=== PATIENT | male | born 1955 | race Caucasian/White ===

== ENCOUNTER 2016-03-06 17:00 | Emergency (ER) | payer BC, OTHER ==
[2016-03-06] MEDS ORDERED: ONDANSETRON 4 MG/2 ML VIAL IVP ONE (17:18)
[2016-03-06] MEDS ORDERED: Sodium Chloride 0.9% 1,000 ML PRIMARY IV ONE (17:18)
--- NOTE | 2016-03-06 17:24 | PDOC ---
Neuro Symptoms / Deficit HPI - General Chief Complaint: Neurological Complaints Stated Complaint: DISORIENTED, CONFUSED, SLURRED SPEECH SINCE 1600 Date Seen by Provider: 03/06/16 Time Seen by Provider: 17:19 Source: POSITIVE: Spouse Exam Limitations: POSITIVE: Clinical condition, Intoxication Nurse's Notes Reviewed & Considered: Yes - History of Present Illness Initial Comments: Patient was brought in by his with altered mental status. Patient was normal earlier today driven home from [place], his left him at home, on a short errand. Upon return home she found him to have altered mental status, slurring of his speech, confusion, disoriented, and flat affect. reports that 2 weeks ago while on a cruise to [facility] he underwent a grand mal seizure and was seen on the [facility]. He is unable to tell me when he had his last drink alcohol, he is a known alcoholic. He smells of alcohol. Timing: REPORTS: Abrupt Duration: 1 hour Severity: Severe Character of Deficit(s): REPORTS: General(diffuse), Impaired Speech, Weak, Cannot Walk, Cannot Stand Associated Symptoms: REPORTS: Altered Mental Status, Disoriented, Confused, Decreased Responsiveness Usual Ability to Walk/Stand: REPORTS: Walks w/o Assistance Usual Cognition: REPORTS: Alert & Oriented x3 Similar Symptoms Previously: No Recently seen/treated/hospitalized: No Any Prior Injuries Related to Current Complaint?: No - Patient Home Medications Home Medications: Home Medications Amlodipine Besylate 1 tab PO QD #90 tab 10/14/15 Lisinopril 1 tab PO QD #90 tab 11/09/15 Triamterene/Hydrochlorothiazid [Triamterene-Hctz 37.5-25 Mg Cp] 1 cap PO QD #90 cap 11/16/15 - Patient Allergies Allergies/Adverse Reactions: Allergies Allergy/AdvReac Type Severity Reaction Status Date / Time No Known Drug Allergies Allergy NOT Verified 03/06/16 17:25 APPLICABLE Past Medical History - heen HEENT History: Denies History Cardiovascular History: Hypertension Respiratory History: Denies History Gastrointestinal History: Denies History Genitourinary History: Denies History Endocrine History: Denies History Musculoskeletal History: Joint Pain Prosthesis or Implant: No Additional Musculoskeletal History: complaints of bilateral kneee pain Neurological History: Denies History Blood Disorders: Denies History Psychiatric History: Substance Abuse, Other (please comment) Additional Psychiatric History: SLEEP TALKING History of Sexually Transmitted Diseases: No Cancer History: Skin History of MDRO: Unknown History of Other Communicable Diseases: No Alcohol Use: Sober Substance Use Type: None Type / Date of Surgery: RIGHT BICEPS RECONSTRUCTION/RIGHT MENISCUS REPAIR Significant Family History: Cancer, Diabetes, Vascular disease, Other (please comment) ROS - Limitations ROS Limitations: Clinical Condition (Patient with altered mental status, further review of systems is unavailable.) Neuro Symptoms / Deficit Exam - General Appearance General Appearance: POSITIVE: No Acute Distress - HEENT HEENT: POSITIVE: Head Inspection Nml, Eyes Inspection Nml, Ears Inspection Nml, Nose Inspection Nml, Oral/Dental Inspect. Nml, Pharynx Inspect. Nml, PERRL, EOMI - Pupil Size Pupil Size: 4 mm: Bilateral - Neuro / Psych Higher Functions: POSITIVE: Disoriented to Place, Disoriented to Time, Speech Abnormalities, Slow Response to Command, Dysarthria Cranial Nerves: POSITIVE: Dysarthria, Other (No facial asymmetry is appreciated. He has difficulty tracking.) Cerebellar: POSITIVE: Abnormal Gait, Abnormal Finger To Nose Peripheral Exam: POSITIVE: Sensation Normal, Motor Normal, Reflexes Normal Reflexes: Patellar (R): 2+, Patellar (L): 2+, Radial (R): 2+, Radial (L): 2+ - Neck Neck: POSITIVE: Supple, Non-Tender - Respiratory Respiratory: POSITIVE: No Respiratory Distress, Breath Sounds Normal - Cardiovascular Cardiovascular: POSITIVE: Regular Rate & Rhythm, Heart Sounds Normal Peripheral Pulses: Radial (R): 2+, Radial (L): 2+ - Abdomen Abdomen: Soft: (All Quadrants), Normal Bowel Sounds: (All Quadrants), Denies Tenderness: (All Quadrants) - Skin Skin: POSITIVE: Intact, Normal For Race, Warm, Dry, No Rash - Extremities Extremity: Non-Tender: (All Extremities), Normal ROM: (All Extremities), Normal Inspection: (All Extremities) Neuro Symptom/Deficit Progress - Results Reviewed by me Xrays/CTs/US Reviewed by me: Yes Discussed with Radiologist: Yes Lab Results Reviewed: Yes Lab Results:: Laboratory Results 03/06/16 03/06/16 Range/Units 17:20 17:28 WBC 10.30 (4.8-10.8) 10^3/uL RBC 3.99 L (4.70-6.10) 10^6/uL Hgb 13.8 L (14.0-18.0) g/dL Hct 39.5 L (42.0-52.0) % MCV 99.0 H (80-90) FL MCH 34.6 H (27-31) PG MCHC 34.9 (33-37) g/dL RDW Std Deviation 44.1 (39-50) fL RDW Coeff of Whitney 12.4 (11.5-14.5) % Plt Count 128 L (140-350) 10*3/uL MPV 9.6 (7.4-12.2) FL Immature Gran % (Auto) 0.4 (0-5) % Neut % (Auto) 72.3 (50-80) % Lymph % (Auto) 18.5 (10-50) % [place] % (Auto) 6.9 (5-15) % Eos % (Auto) 1.3 (0-8) % Baso % (Auto) 0.6 (0-1) % Immature Gran # (Auto) 0.04 10*3/UL Neut # (Auto) 7.45 10*3/UL Lymph # (Auto) 1.91 10*3/uL [place] # (Auto) 0.71 (0.3-0.8) 10*3/UL Eos # (Auto) 0.13 10*3/UL Baso # (Auto) 0.06 10*3/UL WBC Morphology Comment Normal morphology (NORM) Plt Morphology Comment Normal morphology (NORM) RBC Morph Comment Normal morphology (NORM) VBG pH 7.38 (7.32-7.42) VBG pCO2 37 L (45-55) mmHg VBG HCO3 22 (22-26) mmol/L VBG Base Excess -3 L (-2-2) MMOL/L Sodium 142 (135-145) meq/L Potassium 4.1 (3.8-5.2) meq/L Chloride 101 (98-112) meq/L Carbon Dioxide 23 (23-33) meq/L Anion Gap 18 (5-20) BUN 15 (7-22) mg/dL Creatinine 0.9 (0.70-1.50) mg/dL Estimated GFR > 60 (>60 ml/min/1.73m(2)) BUN/Creatinine Ratio 16.66 (6-20) Glucose 93 (78-110) mg/dL Calculated Osmolality 294.0 H (267-292) mOsm/kg Lactic Acid 2.9 H (0.70-2.10) MMOL/L Calcium 9.3 (8.7-10.7) mg/dL Magnesium 1.5 L (1.6-2.4) mg/dL Total Bilirubin 0.6 (0.3-1.2) mg/dL AST 41 (21-57) IU/L ALT 37 (21-72) IU/L Alkaline Phosphatase 85 (38-126) IU/L Total Protein 7.4 (6.1-8.0) g/dL Albumin 4.7 (3.5-4.8) g/dL Globulin 2.7 (2.50-4.10) g/dL Albumin/Globulin Ratio 1.70 (1.3-2.0) mg/g TSH 3.16 (0.2700-4.2000) uIU/mL Free T4 1.07 (0.93-1.71) ng/dL Ur Collection Type Clean catch urine U Specif Grav (Refrac) 1.006 Urine Opiates Screen Negative (NEG) Ur Buprenorphine Negative (NEG) Ur Oxycodone Screen Negative (NEG) Urine Methadone Screen Negative (NEG) Ur Propoxyphene Screen Negative (NEG) Barbiturate Screen Negative (NEG) U Tricyclic Antidepress Negative (NEG) Phencyclidine Screen Negative (NEG) Amphetamines Screen Negative (NEG) U Methamphetamines Scrn Negative (NEG) Benzodiazepines Screen Positive H (NEG) Cocaine Screen Negative (NEG) U Marijuana (THC) Screen Negative (NEG) Serum Alcohol 403 H (0-10) mg/dL - Patient's Progress Pain Medication Addressed: POSITIVE: Not Applicable Re-Examine Time:: 20:45 (Pt is ambulatory with assistence) Status: POSITIVE: Improved MDM / ED Course: Patient comes in today with altered mental status, he was examined, IV was established, blood drawn and sent to lab for studies, and radiographic examinations obtained. Laboratory findings: Blood alcohol greater than 400 CT findings: No acute intracranial abnormalities. Assessment: Acute alcohol intoxication. Plan: Patient wishes to be discharged home. He is being discharged home his states she will be there with him his instructions to follow up with his primary care physician tomorrow. Antibiotics Given: No - Consult Counseled: POSITIVE: Patient, Family, RE: Lab Results, RE: Radiology Results, RE : DX, RE: Need for F/U Patient Care Time - Estimated PCT Patient Care Time (In Minutes): 60 Vital Signs - Recent Vital Signs Vital Signs: Vital Signs (Last 8 hours) Temp Pulse Resp BP Pulse Ox 03/06/16 17:15 17 94 03/06/16 17:00 97.2 F 87 19 104/67 89 - VS Reviewed Vital Signs Reviewed: Yes Discharge Clinical Impression: Alcoholic intoxication Discharge Disposition: Discharged to Home Condition: Fair Patient Instructions Given at Discharge: Alcohol Intoxication (ED), Alcohol Use Disorder (ED)
[2016-03-06 17:31] LABS: BASOPHILS # (AUTO) 0.06 10*3/UL; BASOPHILS % (AUTO) 0.6 % (0-1); EOSINOPHILS % (AUTO) 1.3 % (0-8); HEMATOCRIT 39.5 % (42.0-52.0); HEMOGLOBIN 13.8 g/dL (14.0-18.0); IMM GRAN % (AUTO) 0.4 % (0-5); IMM GRAN# (AUTO) 0.04 10*3/UL; LYMPHOCYTES # (AUTO) 1.91 10*3/uL; LYMPHOCYTES % (AUTO) 18.5 % (10-50); MEAN CORPUSCULAR HEMOGLOBIN 34.6 PG (27-31); MEAN CORPUSCULAR HGB CONC 34.9 g/dL (33-37); MEAN PLATELET VOLUME 9.6 FL (7.4-12.2); MONOCYTES # (AUTO) 0.71 10*3/UL (0.3-0.8); MONOCYTES % (AUTO) 6.9 % (5-15); NEUTROPHILS # (AUTO) 7.45 10*3/UL; NEUTROPHILS % (AUTO) 72.3 % (50-80); RDW COEFFICIENT OF VARIATION 12.4 % (11.5-14.5); RED BLOOD COUNT 3.99 10^6/uL (4.70-6.10)
[2016-03-06 17:33] LABS: PLATELET MORPHOLOGY COMMENT NORMAL MORPHOLOGY (NORM)
[2016-03-06 17:43] LABS: ASPARTATE AMINO TRANSFERASE 41 IU/L (21-57); BILIRUBIN,TOTAL 0.6 mg/dL (0.3-1.2); BLOOD UREA NITROGEN 15 mg/dL (7-22); BUN/CREATININE RATIO 16.66 (6-20); CALCIUM 9.3 mg/dL (8.7-10.7); CHLORIDE 101 meq/L (98-112); CREATININE 0.9 mg/dL (0.70-1.50); EST GLOMERULAR FILTRATION > 60 (>60 ml/min/1.73m(2)); GLUCOSE 93 mg/dL (78-110); MAGNESIUM 1.5 mg/dL (1.6-2.4); POTASSIUM 4.1 meq/L (3.8-5.2); SODIUM 142 meq/L (135-145); TOTAL PROTEIN 7.4 g/dL (6.1-8.0)
[2016-03-06 18:06] LABS: FREE T4 (FREE THYROXINE) 1.07 ng/dL (0.93-1.71); SERUM ALCOHOL 403 mg/dL (0-10)
[2016-03-06 18:37] VITALS: TEMP 97.2
[2016-03-06 18:39] VITALS: RESP 17
--- NOTE | 2016-03-06 18:51 | DI ---
HISTORY: Altered mental status. COMPARISON: None available. TECHNIQUE: Multiple helically acquired CT images were obtained through the brain without contrast. FINDINGS: Examination demonstrates normal, symmetric ventricles and other CSF containing spaces. There is no evidence of mass lesion, hemorrhage nor midline shift. Surrounding soft tissue and osseous structures are unremarkable. IMPRESSION: 1. Normal CT of the head.
[2016-03-06 18:56] LABS: CANNABINOID SCREEN,URINE NEGATIVE (NEG); COCAINE SCREEN NEGATIVE (NEG); METHAMPHETAMINES SCREEN,URINE NEGATIVE (NEG); URINE SAMPLE TYPE CLEAN CATCH URINE; URINE SPECIFIC GRAVITY - MAN 1.006
== END 2016-03-06 20:55 | disposition home or self-care (01) ==
LOC: ER 17:00
DX: F10.129 Alcohol abuse with intoxication, unspecified (principal); R47.81 Slurred speech; R41.0 Disorientation, unspecified
CPT/HCPCS: 36415; 70450; 80053; 80320; 82803; 83605; 83735; 84439; 84443; 85025; 96361; 96374; 99283 ×2; G0477; J2405; J7030

== ENCOUNTER 2017-09-20 18:08 | Inpatient (IN) ==
[2017-09-20] MEDS ORDERED: LORazepam 1 mg tab (ETOH withdrawal) PO PRN (18:41)
[2017-09-20] MEDS ORDERED: ACETAMINOPHEN 325 MG TABLET PO PRN (18:41)
[2017-09-20] MEDS ORDERED: MAGNESIUM 400 MG/5 ML - 30 ML (MILK OF MAGNESIA) PO PRN (18:41)
[2017-09-20] MEDS ORDERED: Loperamide Tab 2 MG TABLET PO PRN (18:41)
[2017-09-20] MEDS ORDERED: ONDANSETRON 4 MG/2 ML VIAL IV PRN (18:41)
[2017-09-20] MEDS ORDERED: LIDOCAINE W/ SODIUM BICARB 0.5 ML SYR SUBD PRN (18:41)
[2017-09-20] MEDS ORDERED: MAG HYDROX/AL HYDROX/SIMETH 30 ML SUSP PO PRN (18:41)
[2017-09-20] MEDS ORDERED: Sodium Chloride 0.9% 1,000 ML, Magnesium Sulfate 2gm (Premix) 50 ML with Multivitamin I... IV SCH ×5 (19:00)
[2017-09-20] MEDS: LORazepam Inj(ETOH withdrawal) 2 MG/ML VIAL IVP PRN ×2 (19:38→21:19)
[2017-09-20] MEDS: Sodium Chloride 0.9% 1,000 ML with Multivitamin Inj 10 ML, Thiamine Inj 100 MG, Folic A... IV SCH ×5 (19:38)
--- NOTE | 2017-09-20 19:44 | PDOC ---
HPI - History of Present Illness Date of Service: 09/20/17 Time of Service: 19:37 Chief Complaint: I'm in withdrawal History of Present Illness: This very pleasant 61-year-old male with a history of chronic alcoholism with 3 attempts at rehabilitation in about 9 months to 3 years of sobriety since 2004. He comes in accompanied by his , pharmacist here at the hospital, with complaints of being shaky, having abdominal pain, and apparently starting him on some confusion. His reports that the patient can get very confused and not even recognize her at times due to his alcohol consumption. He states that he normally drinks a fifth of vodka daily although his states it could be as much as two per day. The patient states his last drink was Monday. He denies any other drug use. He denies any other medical problems although he did have some high blood pressure in the past but that seemed to go away in his months of sobriety. He stated to me that he doesn't know why he decided to quit on Monday but he said overall that "I'm sick and tired of being sick". The patient has tried Alcoholics Anonymous, [email or web address], and a facility in [place], [place]. According to the patient's , the patient often gets hallucinations , severe tachycardia, he's never been intubated however. He can get hypertensive as well. She described it as a "rodeo". Past Medical History Medical History: 1. Chronic alcoholism Surgical History: 1. Right biceps repair. 2. Knee meniscus surgery. Pertinent Family History: Brother of alcohol related issues. Past Social History: Drinks heavily, , no children, does not smoke or do drugs. Tobacco Use: Never Smoker In the Past 12 Months, Have Used or Abuse Any of the Following Substance: None Alcohol Use: Heavy Medication / Allergies Home Medications: Home Medications 3 Medication Instructions Recorded Confirmed Type NK 09/20/17 09/20/17 History Allergies/Adverse Reactions: Allergies 3 Allergy/AdvReac Type Severity Reaction Status Date / Time No Known Drug Allergies Allergy NOT Verified 09/20/17 18:59 APPLICABLE Review of Systems - Review of Systems All Systems: Reviewed & No Additional Complaints Except as Stated (I did a 12 point review systems and other than that discussed in history present illness the review systems is entirely negative.) Exam - Vitals Vital Signs: Vital Signs Temperature 99.9 F Temperature Source Oral Pulse Rate [Apical] 90 Pulse Rate [Pulse Oximeter] 78 Pulse Rate 90 Respiratory Rate 18 Blood Pressure [Left Arm] 171/104 Blood Pressure 160/101 Pulse Ox 93 Oxygen Delivery Method Room Air Height 6 ft Weight 204 lb 5 oz - General General Appearance: Cooperative, Mild Distress (Agitated, bilateral tremors, cooperative, nontoxic despite low-grade temperature) - Head Head Exam: Normal Inspection, Normocephalic, Atraumatic - Eye Eye Exam: POSITIVE: No Scleral Icterus - ENT ENT Exam: POSITIVE: Mucous Membranes Dry - Neck Neck Exam: Normal Inspection, No Tenderness, No Lymphadenopathy, No Thyromegaly , JVP is not Raised - Respiratory Respiratory Exam: POSITIVE: Clear to Auscultation - Bilaterally, Breathing Non Labored, Normal to Percussion and Palpation - Cardiovascular Cardiovascular Exam: POSITIVE: RRR, No Murmur, No Clicks, No Gallops, No Rubs, No JVD - GI/Abdominal GI/Abdominal Exam: POSITIVE: Normal Bowel Sounds, Non Distended, Soft, Hepatomegaly Additional GI/Abdominal Exam Details: Mildly tender to palpation. - Rectal Rectal Exam: POSITIVE: Deferred - External Exam: POSITIVE: Deferred Exam: POSITIVE: Deferred - Extremities Extremities Exam: POSITIVE: No Clubbing Present, No Edema Present, No Cyanosis Present - Back Back Exam: POSITIVE: Normal Inspection, No CVA Tenderness - Neurological Neurological Exam: POSITIVE: Alert, Oriented x 3, No Facial Droop, Speech Intact / Clear, Moves All Extremities Equally Additional Neurological Exam Details: Bilateral arm tremors and hand tremors. Mild agitation - Psychiatric Psychiatric Exam: POSITIVE: Anxious, Agitated - Integumentary Integumentary Exam: POSITIVE: Normal Color, Warm, Dry, Intact - Central Line Examination Central Line Present on Admission: No Results - Labs Additional Lab Results: I had several tests ordered including a CMP, CBC with differential, PT and INR, gamma GT, and may order more diagnostic testing. Based on these labs. I have also order urinalysis, a urine drug screen, and a serum alcohol level. Assessment and Plan - Patient Problems (1) Alcohol withdrawal delirium Current Visit: Yes Status: Acute Code(s): F10.231 - Alcohol dependence with withdrawal delirium (2) Alcohol abuse Current Visit: Yes Status: Acute Code(s): F10.10 - Alcohol abuse, uncomplicated (3) Hypertension Current Visit: Yes Status: Acute Code(s): I10 - Essential (primary) hypertension Qualifiers: Hypertension type: essential hypertension Qualified Code(s): I10 - Essential (primary) hypertension - Assessment / Plan Additional Assessment/Plan Details: Given the complex nature of this alcoholic withdrawal syndrome, with the start of delirium tremens with hypertension, confusion reported at home, agitation, and tremors, along with abdominal pain and hepatomegaly, in addition to alcohol withdrawal and also worried about potential acute alcoholic hepatitis. The patient will be admitted to the intensive care unit for Precedex drip, CIWA protocol, Librium, vitamin B6, banana bags, electrolyte replacement as necessary , and management of this withdrawal. The patient is trying to formulate a plan for post withdrawal treatment for long -term alcoholic treatment. I did suggest consideration for naltrexone, 50 mg by mouth daily Treat blood pressures when necessary. Labs in a.m. Protonix DVT prophylaxis. Will probably need some sort of abdominal imaging for hepatomegaly. Spoke to the patient and his regarding this plan and they agree. Patient is full code.
[2017-09-20] MEDS ORDERED: PANTOPRAZOLE IV 40 MG VIAL IVP ONE (19:48)
[2017-09-20 20:01] LABS: BLOOD UREA NITROGEN 12 mg/dL (7-22); BUN/CREATININE RATIO 17.14 (6-20); SERUM ALBUMIN 4.5 g/dL (3.5-4.8)
[2017-09-20 20:09] LABS: BASOPHILS # (AUTO) 0.03 10*3/UL; BASOPHILS % (AUTO) 0.7 % (0-1); EOSINOPHILS # (AUTO) 0.01 10*3/UL; EOSINOPHILS % (AUTO) 0.2 % (0-8); Hematocrit [HCT] 42.9 % (42.0-52.0); Hemoglobin [HGB] 15.6 g/dL (14.0-18.0); LYMPHOCYTES # (AUTO) 0.47 10*3/uL; MEAN CORPUSCULAR HEMOGLOBIN 36.4 PG (27-31); MEAN CORPUSCULAR HGB CONC 36.4 g/dL (33-37); MEAN CORPUSCULAR VOLUME 100.2 FL (80-90); MEAN PLATELET VOLUME 9.7 FL (7.4-12.2); MONOCYTES # (AUTO) 0.46 10*3/UL (0.3-0.8); MONOCYTES % (AUTO) 10.8 % (5-15); NEUTROPHILS # (AUTO) 3.27 10*3/UL; NEUTROPHILS % (AUTO) 76.6 % (50-80); RED BLOOD COUNT 4.28 10^6/uL (4.70-6.10)
[2017-09-20] MEDS: PANTOPRAZOLE IV 40 MG VIAL IVP SCH (20:09)
[2017-09-20 20:12] LABS: PLATELET MORPHOLOGY COMMENT SEE COMMENTS (NORM); RBC MORPHOLOGY COMMENT NORMAL MORPHOLOGY (NORM); WBC MORPHOLOGY COMMENT NORMAL MORPHOLOGY (NORM)
[2017-09-20] MEDS: MAGNESIUM OXIDE 400 MG TABLET PO SCH (20:17)
[2017-09-20] MEDS: Sodium Chloride 0.9% 1,000 ML PRIMARY IV SCH (20:21)
[2017-09-20] MEDS ORDERED: ChlordiazePOXIDE 25mg Cap (ETOH withdrawal) PO SCH (21:00)
[2017-09-20] MEDS: NICOTINE 21 MG /DAY PATCH TRANSDERM SCH (22:02)
[2017-09-21 05:21] LABS: BASOPHILS # (AUTO) 0.02 10*3/UL; BASOPHILS % (AUTO) 0.6 % (0-1); EOSINOPHILS # (AUTO) 0.09 10*3/UL; EOSINOPHILS % (AUTO) 2.6 % (0-8); Hemoglobin [HGB] 14.1 g/dL (14.0-18.0); LYMPHOCYTES # (AUTO) 0.63 10*3/uL; MEAN CORPUSCULAR HEMOGLOBIN 34.8 PG (27-31); MEAN CORPUSCULAR HGB CONC 33.6 g/dL (33-37); MEAN CORPUSCULAR VOLUME 103.7 FL (80-90); MEAN PLATELET VOLUME 9.9 FL (7.4-12.2); MONOCYTES # (AUTO) 0.42 10*3/UL (0.3-0.8); MONOCYTES % (AUTO) 12.3 % (5-15); NEUTROPHILS # (AUTO) 2.25 10*3/UL; RED BLOOD COUNT 4.05 10^6/uL (4.70-6.10)
[2017-09-21 05:33] LABS: BILIRUBIN,URINE SMALL (NEG); CLARITY,URINE CLEAR (CLEAR); COLOR,URINE YELLOW (Y); GLUCOSE, URINE (UA) NEGATIVE (NEG); OCCULT BLOOD,URINE NEGATIVE (NEG); PH,URINE 7.5 (5.0-8.5); PROTEIN,URINE >300 mg/dl (NEG)
[2017-09-21 05:40] LABS: URINE SAMPLE TYPE CLEAN CATCH URINE
[2017-09-21 05:45] LABS: AMPHETAMINE SCREEN NEGATIVE (NEG); BACTERIA,URINE FEW; CANNABINOID SCREEN,URINE NEGATIVE (NEG); COCAINE SCREEN NEGATIVE (NEG); METHADONE URINE SCREEN NEGATIVE (NEG); METHAMPHETAMINES SCREEN,URINE NEGATIVE (NEG); OPIATE SCREEN,URINE NEGATIVE (NEG); RBC,URINE 0-1 /hpf; URINE SAMPLE TYPE CLEAN CATCH URINE; WBC,URINE 0-1
[2017-09-21 06:10] LABS: PLATELET MORPHOLOGY COMMENT NORMAL MORPHOLOGY (NORM); RBC MORPHOLOGY COMMENT NORMAL MORPHOLOGY (NORM); WBC MORPHOLOGY COMMENT NORMAL MORPHOLOGY (NORM)
[2017-09-21] MEDS ORDERED: PANTOPRAZOLE 40 MG TABLET PO SCH (07:00)
[2017-09-21] MEDS: PANTOPRAZOLE IV 40 MG VIAL IVP SCH ×2 (08:41→19:26)
[2017-09-21] MEDS: Multivitamin Tab 1 TAB PO SCH (08:41)
[2017-09-21] MEDS: Thiamine Tab 100 MG TAB PO SCH (08:41)
[2017-09-21] MEDS: ChlordiazePOXIDE Cap 25 MG CAPSULE PO SCH ×3 (08:41→20:47)
[2017-09-21] MEDS: MAGNESIUM OXIDE 400 MG TABLET PO SCH ×2 (08:42→20:47)
[2017-09-21] MEDS: NICOTINE 21 MG /DAY PATCH TRANSDERM SCH (08:42)
[2017-09-21] MEDS: Patch Removal NICOTINE PATCH TRANSDERM SCH (08:42)
--- NOTE | 2017-09-21 13:42 | DI ---
ABDOMINAL ULTRASOUND, 09/21/2017 10:54 AM: Clinical History: Elevated LFTs. Previous Exam: None at this facility. Scans are performed through the right and left upper quadrants in multiple projections. The gallbladder is well distended and has a normal wall thickness. There are no gall stones. Common b ile duct measures 4 mm. There is hepatomegaly with increased echogenicity and decreased through trans mission most consistent with fatty infiltration. No nodularity of the liver capsule is identified and there is no distortion of the vascular pattern of the liver to definitely indicate cirrhosis. Color Doppler ultrasound of the portal vein shows centripetal flow. The head and neck of the pancreas are v isualized and those portions are normal. Both kidneys and the spleen are normal. The IVC and aorta ar e also normal. READIN. Hepatomegaly with increased echogenicity without nodularity of the liver capsule or distortion of the vascular structures of the liver. This finding is most consistent with diffuse fatty infiltratio n. Cirrhosis cannot entirely be excluded. There is normal centripetal flow in the portal veins. 2. Both kidneys, the spleen, aorta, IVC, and the limited views of the pancreas are normal.
[2017-09-21] MEDS ORDERED: Dexmedetomidine/NS 400 MCG/100 ML INFUS..BTL IV SCH (15:15)
--- NOTE | 2017-09-21 16:27 | PDOC(PROG) ---
Date and Time of Service: 09/21/2017, 1624 Interval History: He denies chest pain, shortness breath, nausea or vomiting, patient would like to eat. He denies any hallucinations. He denied any tremors but when I had him set up to have him breathe on examination he has significant tremors bilaterally in his hands. Objective : Data - Labs CBC and BMP: 09/21/17 04:59 09/20/17 19:46 Additional Lab Results: 09/21/17 05:14 Urine Protein >300 A Objective : Exam - General General Appearance: No Acute Distress, Cooperative Additional General Exam Details: Vital Signs - Last Taken Temperature 98.3 F 09/21/17 14:56 Pulse Rate 71 09/21/17 15:00 Respiratory Rate 16 09/21/17 14:56 Blood Pressure 136/87 09/21/17 14:56 Pulse Ox 98 09/21/17 15:00 - Eye Eye Exam: No Scleral Icterus - ENT ENT Exam: Mucous Membranes Moist - Respiratory Respiratory Exam: Clear to Auscultation - Bilaterally, Breathing Non Labored - Cardiovascular Cardiovascular Exam: RRR, No Murmur, No Clicks, No Gallops, No Rubs - GI/Abdominal GI/Abdominal Exam: Normal Bowel Sounds, Non Tender, Non Distended, Soft, Hepatomegaly - Extremities Extremities Exam: No Clubbing Present, No Edema Present, No Cyanosis Present - Neurological Neurological Exam: Alert, Oriented x 3, No Facial Droop, Speech Intact / Clear, Moves All Extremities Equally Assessment and Plan - Patient Problems (1) Alcohol withdrawal delirium Current Visit: Yes Status: Acute Code(s): F10.231 - Alcohol dependence with withdrawal delirium (2) Alcohol abuse Current Visit: Yes Status: Acute Code(s): F10.10 - Alcohol abuse, uncomplicated (3) Hypertension Current Visit: Yes Status: Acute Code(s): I10 - Essential (primary) hypertension Qualifiers: Hypertension type: essential hypertension Qualified Code(s): I10 - Essential (primary) hypertension - Assessment / Plan Additional Assessment/Plan Details: continue precedex and ativan on CIWA scale replace potassium ultrasound checked today--has hepatomegaly and fatty liver. cannot rule out early cirrhosis labs in AM eventual rehab for alcohol.
[2017-09-21] MEDS: Sodium Chloride 0.9% 1,000 ML with Multivitamin Inj 10 ML, Thiamine Inj 100 MG, Folic A... IV SCH ×5 (19:26)
[2017-09-21] MEDS: Sodium Chloride 0.9% 1,000 ML PRIMARY IV SCH (20:47)
[2017-09-22 05:48] LABS: BLOOD UREA NITROGEN 13 mg/dL (7-22); BUN/CREATININE RATIO 18.57 (6-20)
[2017-09-22] MEDS: MAGNESIUM OXIDE 400 MG TABLET PO SCH ×2 (08:12→20:21)
[2017-09-22] MEDS: NICOTINE 21 MG /DAY PATCH TRANSDERM SCH (08:12)
[2017-09-22] MEDS: PANTOPRAZOLE IV 40 MG VIAL IVP SCH (08:12)
[2017-09-22] MEDS: Thiamine Tab 100 MG TAB PO SCH (08:12)
[2017-09-22] MEDS: Multivitamin Tab 1 TAB PO SCH (08:13)
[2017-09-22] MEDS: ChlordiazePOXIDE Cap 25 MG CAPSULE PO SCH ×3 (08:13→20:21)
[2017-09-22] MEDS: Patch Removal NICOTINE PATCH TRANSDERM SCH (08:21)
[2017-09-22] MEDS ORDERED: Magnesium Sulfate 2gm (Premix) 2 GM/50 ML BAG IV ONE (10:27)
--- NOTE | 2017-09-22 11:53 | PDOC(PROG) ---
Date and Time of Service: 09/22/2017, 1148 Interval History: No complaints of chest pain, shortness breath, nausea or vomiting. States it is feeling a little better. Complained of some hand swelling from IV fluids. He says his plan is to consider doing alcoholics anonymous here in [place] and trying to find a new, more available sponsor, and aside from that really did not have much of a developed plan for continuing alcohol rehabilitation. He thinks a 12-step program in a better spiritual relationship might help. Objective : Data - Labs CBC and BMP: 09/21/17 04:59 09/22/17 04:57 Additional Lab Results: 09/22/17 04:57 Calcium 7.7 L Magnesium 2.0 Total Bilirubin 1.5 H AST 56 ALT 59 Alkaline Phosphatase 53 Total Protein 5.3 L Albumin 3.0 L Globulin 2.3 L Albumin/Globulin Ratio 1.30 Objective : Exam - General General Appearance: No Acute Distress, Cooperative Additional General Exam Details: Vital Signs - Last Taken Temperature 97.8 F 09/22/17 11:00 Pulse Rate 59 L 09/22/17 11:00 Respiratory Rate 18 09/22/17 11:00 Blood Pressure 133/82 09/22/17 11:00 Pulse Ox 94 09/22/17 11:00 - Eye Eye Exam: No Scleral Icterus - ENT ENT Exam: Mucous Membranes Moist - Respiratory Respiratory Exam: Clear to Auscultation - Bilaterally, Breathing Non Labored - Cardiovascular Cardiovascular Exam: RRR, No Murmur, No Clicks, No Gallops, No Rubs, No JVD - GI/Abdominal GI/Abdominal Exam: Normal Bowel Sounds, Non Tender, Non Distended, Soft, Hepatomegaly - Extremities Extremities Exam: No Clubbing Present, No Edema Present, No Cyanosis Present - Neurological Neurological Exam: Alert, Oriented x 3, No Facial Droop, Speech Intact / Clear, Moves All Extremities Equally Additional Neurological Exam Details: Bilateral hand tremors, somewhat improved Assessment and Plan - Patient Problems (1) Alcohol withdrawal delirium Current Visit: Yes Status: Acute Code(s): F10.231 - Alcohol dependence with withdrawal delirium (2) Alcohol abuse Current Visit: Yes Status: Acute Code(s): F10.10 - Alcohol abuse, uncomplicated (3) Hypertension Current Visit: Yes Status: Acute Code(s): I10 - Essential (primary) hypertension Qualifiers: Hypertension type: essential hypertension Qualified Code(s): I10 - Essential (primary) hypertension (4) Hepatomegaly Current Visit: Yes Status: Acute Code(s): R16.0 - Hepatomegaly, not elsewhere classified (5) Thrombocytopenia Current Visit: Yes Status: Acute Code(s): D69.6 - Thrombocytopenia, unspecified - Assessment / Plan Additional Assessment/Plan Details: Overall, better from alcoholic delirium. I think ET's are calming down any significant alcoholic withdrawal, but improving. I think we can titrate off the Precedex through the day. Continue CIWA protocol. Continue scheduled Librium for now. Give more magnesium today. Discussed with the patient his risk of cirrhosis moving forward is extremely high and he will likely from cirrhosis if he continues to drink. We discussed alcohol rehabilitation plans after this acute admission, and his plan at this point his Alcoholics Anonymous and trying to develop a better spiritual relationship. This sounds like a 12-step program. I discussed with them that residential therapy typically is more successful given his level of drinking, but he is not sure yet. We will have [facility] visit them so that he knows what the options are here for an outpatient therapy plan. Hoping to transfer to floor status today.
[2017-09-22 12:30] LABS: 24 HOUR URINE CREA CONCENTR 77.6 mg/dL
[2017-09-22 12:41] LABS: 24 HOUR URINE TOTAL VOLUME 2400 ML
[2017-09-22] MEDS ORDERED: LIDOCAINE W/ SODIUM BICARB 0.5 ML SYR SUBD PRN (17:37)
[2017-09-22] MEDS ORDERED: ACETAMINOPHEN 325 MG TABLET PO PRN (17:37)
[2017-09-22] MEDS ORDERED: MAG HYDROX/AL HYDROX/SIMETH 30 ML SUSP PO PRN (17:37)
[2017-09-22] MEDS ORDERED: LORazepam Inj(ETOH withdrawal) 2 MG/ML VIAL IVP PRN (17:37)
[2017-09-22] MEDS: LORazepam 1 mg tab (ETOH withdrawal) PO PRN (20:29)
[2017-09-23 05:11] LABS: BASOPHILS # (AUTO) 0.03 10*3/UL; BASOPHILS % (AUTO) 0.4 % (0-1); EOSINOPHILS # (AUTO) 0.14 10*3/UL; EOSINOPHILS % (AUTO) 2.1 % (0-8); Hematocrit [HCT] 43.3 % (42.0-52.0); Hemoglobin [HGB] 15.3 g/dL (14.0-18.0); LYMPHOCYTES # (AUTO) 0.97 10*3/uL; MEAN CORPUSCULAR HEMOGLOBIN 35.8 PG (27-31); MEAN CORPUSCULAR HGB CONC 35.3 g/dL (33-37); MEAN CORPUSCULAR VOLUME 101.4 FL (80-90); MEAN PLATELET VOLUME 10.1 FL (7.4-12.2); MONOCYTES # (AUTO) 0.79 10*3/UL (0.3-0.8); MONOCYTES % (AUTO) 11.7 % (5-15); NEUTROPHILS # (AUTO) 4.79 10*3/UL; RED BLOOD COUNT 4.27 10^6/uL (4.70-6.10)
[2017-09-23 05:24] LABS: BLOOD UREA NITROGEN 15 mg/dL (7-22); BUN/CREATININE RATIO 16.66 (6-20); SERUM ALBUMIN 4.3 g/dL (3.5-4.8)
[2017-09-23 05:43] LABS: PLATELET MORPHOLOGY COMMENT NORMAL MORPHOLOGY (NORM); RBC MORPHOLOGY COMMENT NORMAL MORPHOLOGY (NORM); WBC MORPHOLOGY COMMENT NORMAL MORPHOLOGY (NORM)
[2017-09-23] MEDS: LORazepam 1 mg tab (ETOH withdrawal) PO PRN (05:45)
[2017-09-23 06:39] VITALS: BP 149/92; RESP 18; TEMP 98; O2SAT 94
[2017-09-23] MEDS ORDERED: PANTOPRAZOLE 40 MG TABLET PO SCH (07:00)
[2017-09-23] MEDS ORDERED: LORazepam 2 MG/1 ML VIAL IVP ONE (07:39)
[2017-09-23] MEDS ORDERED: Sodium Chloride 0.9% 1,000 ML ONE (08:28)
[2017-09-23] MEDS ORDERED: Dexmedetomidine/NS 400 MCG/100 ML INFUS..BTL IV SCH (08:30)
[2017-09-23] MEDS ORDERED: HALOPERIDOL LACTATE 5 MG/1 ML AMPULE IM ONE (08:40)
[2017-09-23] MEDS ORDERED: HALOPERIDOL LACTATE 5 MG/1 ML AMPULE ONE (08:46)
[2017-09-23] MEDS ORDERED: Multivitamin Tab 1 TAB PO SCH (09:00)
[2017-09-23] MEDS ORDERED: NICOTINE 21 MG /DAY PATCH TRANSDERM SCH (09:00)
[2017-09-23] MEDS ORDERED: Thiamine Tab 100 MG TAB PO SCH (09:00)
[2017-09-23] MEDS ORDERED: Naltrexone HCl 50 MG TABLET PO SCH (09:00)
[2017-09-23] MEDS ORDERED: SUCCINYLCHOLINE CHLORIDE 20 MG/1 ML - 10 ML ONE (09:32)
[2017-09-23] MEDS ORDERED: LIDOCAINE HCL 5 ML JEL TOPICAL ONE (09:33)
[2017-09-23] MEDS ORDERED: ETOMIDATE 2 MG/1 ML - 20 ML IVP ONE (09:33)
[2017-09-23] MEDS ORDERED: KETAMINE 100 MG/1 ML - 5 ML ONE (09:52)
[2017-09-23] MEDS ORDERED: ROCURONIUM 10 MG/1 ML - 5 ML VIAL IVP ONE (10:04)
--- NOTE | 2017-09-23 10:18 | CRNA.PROGR ---
Anesthesia Time - - Start date: 09/23/17 End date: 09/23/17 - Procedure/Recovery Time Anesthesia : Time In: 09:40 Anesthesia : Time Out: 10:18 Anesthesia : Total Time: 38 - Total Anesthesia Time Total Anesthesia Time (minutes): 38 - Other Weight: 94.619 kg Height: 6 ft Body Mass Index (BMI): 28.3 Physical Status: P3 (see running notes from recorder) Special Procedures: Emergency Intubation
[2017-09-23] MEDS ORDERED: fentaNYL Inj 100 MCG/2 ML VIAL IVP PRN (10:27)
[2017-09-23] MEDS ORDERED: Magnesium Sulfate 2gm (Premix) 2 GM/50 ML BAG IV ONE (10:27)
[2017-09-23] MEDS ORDERED: PROPOFOL 10 MG/1 ML (100 ML) IV ONE (10:33)
[2017-09-23] MEDS ORDERED: Diazepam Inj (ETOH withdrawal)10 MG/2 ML CARPUJECT IVP ONE (10:40)
[2017-09-23] MEDS ORDERED: LIDOCAINE HCL 2 % 10 ML JELLY URO-JECT TOPICAL PRN (10:40)
--- NOTE | 2017-09-23 10:44 | PROCEDURE1 ---
Procedure - - Date and Time of Service: 09/23/2017, 10:15 Procedure Performed: Central Line : Non Tunneled Procedure Note: Procedure performed: Right Internal jugular central venous catheter placement Indication for procedure: Acute alcohol withdrawal syndrome with delirium tremens, hallucinations, and need for sedation and protective intubation, with risks discussed as possible arterial puncture, pneumothorax, and localized pain. Benefits for medication administration, blood draws, hemodynamic monitoring, and management of clinical condition as described above. Description of procedure: The patient was prepped and draped in the usual fashion with a full body drape. Ultrasound guidance was used to identify the right internal jugular vein. The area was cleansed with chlorhexidine. Lidocaine was used for local anesthesia. Using an introducer needle attached to a 5 mL syringe, this was inserted and angled towards the ipsilateral nipple, with ultrasound guidance as well. There was a flash of venous blood as the internal jugular vein was cannulated via the introducer needle. A guidewire was inserted through the needle into the internal jugular vein and the needle was removed over the wire. A 10 blade was then used to perform a small dermatotomy at the needle insertion site. The venous dilator was then placed over the guidewire using Seldinger technique, and then removed. I was able to confirm the guidewire in the internal jugular vein with ultrasound. 4 port central venous catheter was then placed over the guidewire inserted into the internal jugular vein and the guidewire was removed. All ports were flushed with normal saline. All ports had draw back. The catheter was sutured into place at 15 cm at insertion site, and the skin was cleansed with chlorhexidine and the catheter was dressed by RN at that point. A postprocedure x-ray showed Central line in the correct position with tip near the cavoatrial junction, and endotracheal tube appeared to be in the correct location I did not notice any evidence of pneumothorax. I personally reviewed the chest X-ray. Complications: None apparent at time of procedure Disposition: Patient is in critical condition and awaiting transport to [facility].
[2017-09-23 10:45] LABS: ABG BASE EXCESS -1 MMOL/L (-2-2); ABG OXYGEN SATURATION 96 % (90-100); ABG PCO2 51 MMHG (34-38); ABG PH 7.31 (7.35-7.45); ABG PO2 91 MMHG (65-75); ALLEN TEST YES; COLLECTION SITE RIGHT RADIAL
[2017-09-23] MEDS ORDERED: MIDAZOLAM HCL 50 MG/10 ML VIAL IV ONE (10:46)
[2017-09-23] MEDS ORDERED: HEPARIN 500 UNIT/5 ML SYRINGE FOR CENTRAL LINE IVP ONE (10:51)
[2017-09-23] MEDS: Propofol 1,000 MG/100 ML VIAL IV SCH ×2 (10:53→12:00)
--- NOTE | 2017-09-23 10:54 | DI ---
INDICATION: Line placement COMPARISON: Chest x-ray dated 02/09/17 FINDINGS: Single frontal view demonstrates a normal cardiomediastinal silhouette. Small left lower lung zone opacity. Lungs otherwise clear. No pleural effusions. Endotracheal tube 5.9 cm above the grover. Right internal jugular central venous catheter with tip in the superior vena cava. The visualized osseous structures are within normal limits. IMPRESSION: 1. Endotracheal tube 5.9 cm above the grover. Right internal jugular central venous catheter with tip in the superior vena cava. 2. Small left lower lung zone opacity.
--- NOTE | 2017-09-23 11:06 | DCSUMMARY ---
Hospitalization Summary Admit Date: 09/20/2017 Discharge Date: 09/23/17 Primary Diagnosis:: acute alcohol withdrawal and delirium tremens Hospital Course: This is a 61-year-old male with no significant prior past medical history other than chronic alcoholism and hypertension was treated intermittently in the past. He was admitted for management of alcohol withdrawal directly and was placed on Precedex and had CIWA protocol administered as well. We gave him thiamine, multivitamin, and replace magnesium and potassium as necessary. Over the first 2-1/2 days of the hospital stay, the patient tolerated this therapy well and we were actually able to wean off Precedex yesterday afternoon. 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 He thought that the nurses were attacking him, and please officers had to be called. We can close to having to physically restrain the patient does use quite combative, pulling out IVs, and threatened to throw punches. We pushed Valium at bedside with me and presents, 100 mg total before we had any level of sedation and calmness. We also gave an pushed 12 mg of Ativan, 10 mg of Haldol, and made the decision that we would need to intubate to protect airway with continued needs for aggressive sedation for this patient's alcohol withdrawal. He is intubated with rapid sequence intubation using etomidate and succinylcholine, and we ended up losing both IVs , peripherally, that we had. We are able to place another peripheral IV, and resumed propofol. He was given a dose of rocuronium and also given a dose of ketamine. We had to make a decision to move towards a central line for improved IV access to continue to administer medications to maintain sedation. Initial vent settings showed a pH 7.30, PaCO2 of 51, PaO2 of 91, bicarbonate 25.5. We are increasing the rate to 16 with a tidal volume of 500, a PEEP of 5 , and it is in assist control mode do to sedation. The patient was disoriented, hallucinating on examination today. His exam is unreliable. I spoke with [facility] yesterday in the evening and it is unclear if the patient truly has the desire to do alcohol rehabilitation post hospital stay. Currently, the patient is resting comfortably on the ventilator, sedated, and on exam, he is afebrile, soft rate is 66, blood pressure currently with systolic blood pressure of 112, his saturation is 96% on current vent settings as discussed above. I spoke to the director of corporate real estate [place] [facility] [place] and she agreed to accept the patient for further intensive care. Assessment and Plan: 1. As per discharge assessments noted 2. Disposition: Patient is discharged to [facility]. Condition on discharge, stable and improved. The patient's condition could deteriorate as he is in a sedated mode and is requiring intubation to protect airway. 4. Diet: Nothing by mouth 5. Activities: As per [facility] 6. Follow-Up: 1. Dr. Ingram one week post discharge from hospital, preferably strayed from hospital to residential rehabilitation. 2. 7. Medications at the Time of Discharge: Active Medications Generic Name Dose Route Start Last Admin Trade Name Freq PRN Reason Stop Dose Admin Acetaminophen 650 mg 09/22/17 17:37 Tylenol PO Q6H PRN Pain Al Hydroxide/Mg Hydroxide 30 ml 09/22/17 17:37 Mylanta Liquid PO Q2H PRN GI Upset Chlordiazepoxide HCl 25 mg 09/22/17 21:00 09/22/17 20:21 Librium PO 25 mg TID REYNA Administration Fentanyl Citrate 25 mcg 09/23/17 10:27 Sublimaze Inj IVP Q1H PRN Pain Dexmedetomidine/Sodium Chloride 400 mcg in 100 mls @ 4.731 mls/hr 09/23/17 08: 30 09/23/17 10:55 Precedex/Ns IV 1.4 mcg/kg/hr .Titrate REYNA 33.117 mls/hr Administration Protocol 0.2 MCG/KG/HR Propofol 1,000 mg in 100 mls @ 22.709 mls/hr 09/23/17 09:30 09/23/17 11:05 Diprivan IV 80 mcg/kg/min .TITRATE REYNA 45.417 mls/hr Titration Protocol 40 MCG/KG/MIN Magnesium Sulfate 2 gm in 50 mls @ 25 mls/hr 09/23/17 10:27 09/23/17 11:01 Magnesium Sulfate 2gm (Premix) IV 09/23/17 12:26 25 mls/hr ONCE ONE Administration Potassium Chloride 20 meq in 100 mls @ 50 mls/hr 09/23/17 10:27 09/23/17 11: 01 Potassium Chloride 20 Meq IV 09/23/17 12:26 50 mls/hr ONCE ONE Administration Lidocaine HCl 0.5 ml 09/22/17 17:37 Lidocaine Buffered Inj SUBD ONCE PRN IV Starts Lidocaine HCl 10 ml 09/23/17 10:40 Xylocaine Uro-Ject 2% TOPICAL ONCE PRN Discomfort catheter insertion Lorazepam 1 - 4 mg 09/22/17 17:37 Ativan Inj (Etoh Withdrawal) IVP .PER CIWA-AR PRN CIWA-Ar score >8 Lorazepam 1 - 4 mg 09/22/17 17:37 09/23/17 05:45 Ativan Tab(Etoh Withdrawal) PO 2 mg .PER CIWA-AR PRN Administration CIWA-Ar >8 Magnesium Oxide 400 mg 09/22/17 21:00 09/22/17 20:21 Mag-Ox PO 09/24/17 20:59 400 mg BID REYNA Administration Multivitamins Therapeutic 1 tab 09/23/17 09:00 Thera Tab PO DAILY RYENA Naltrexone HCl 50 mg 09/23/17 09:00 Naltrexone Hcl PO DAILY REYNA Nicotine 1 patch 09/23/17 09:00 Nicoderm Cq 21mg Patch TRANSDERM DAILY REYNA Patch Removal 0 09/23/17 09:00 Nicotine Patch TRANSDERM DAILY REYNA Pantoprazole Sodium 40 mg 09/23/17 07:00 09/23/17 06:55 Protonix PO 40 mg AC BK REYNA Administration Thiamine HCl 100 mg 09/23/17 09:00 Vitamin B-1 PO DAILY REYNA 8. Time, care, counseling and coordination of care for this discharge is greater than 30 minutes. Exam - Vitals Vital Signs: Vital Signs Vital Signs - Last Taken Temperature 98 F 09/23/17 06:38 Pulse Rate 76 09/23/17 06:59 Respiratory Rate 18 09/23/17 06:38 Blood Pressure 149/92 09/23/17 06:38 Pulse Ox 94 09/23/17 06:38 Height 6 ft Weight 208 lb 9.6 oz Currently, heart rate 66, systolic blood pressure 112, respiratory rate 16 on vent, he is not overbreathing the vent at this time, and O2 sat is 96%. - General General Appearance: No Acute Distress Additional General Exam Details: Sedated on vent now - Eye Eye Exam: POSITIVE: No Scleral Icterus - ENT ENT Exam: POSITIVE: Mucous Membranes Moist - Respiratory Respiratory Exam: POSITIVE: Clear to Auscultation - Bilaterally, Breathing Non Labored - Cardiovascular Cardiovascular Exam: POSITIVE: RRR, No Murmur, No Clicks, No Gallops, No Rubs, No JVD Additional Cardiovascular Details: Was tachycardic earlier prior to ventilatory care and sedation. - GI/Abdominal GI/Abdominal Exam: POSITIVE: Normal Bowel Sounds, Non Tender, Non Distended, Soft, Hepatomegaly - Extremities Extremities Exam: POSITIVE: No Clubbing Present, No Edema Present, No Cyanosis Present - Neurological Neurological Exam: POSITIVE: Alert, No Facial Droop, Speech Intact / Clear, Moves All Extremities Equally, Altered Additional Neurological Exam Details: The patient was only alert to self he was not oriented to place, time, or situation prior to ventilator care and intubation. Data Peritnent Studies: Laboratory Results 09/21/17 09/21/17 09/21/17 Range/Units 11:57 11:57 11:57 WBC (4.8-10.8) 10^3/uL RBC (4.70-6.10) 10^6/uL Hgb (14.0-18.0) g/dL Hct (42.0-52.0) % MCV (80-90) FL MCH (27-31) PG MCHC (33-37) g/dL RDW Std Deviation (39-50) fL RDW Coeff of Whitney (11.5-14.5) % Plt Count (140-350) 10*3/uL MPV (7.4-12.2) FL Immature Gran % (Auto) (0-5) % Neut % (Auto) (50-80) % Lymph % (Auto) (10-50) % Morris % (Auto) (5-15) % Eos % (Auto) (0-8) % Baso % (Auto) (0-1) % Immature Gran # (Auto) 10*3/UL Neut # (Auto) 10*3/UL Lymph # (Auto) 10*3/uL Morris # (Auto) (0.3-0.8) 10*3/UL Eos # (Auto) 10*3/UL Baso # (Auto) 10*3/UL WBC Morphology Comment (NORM) Plt Morphology Comment (NORM) RBC Morph Comment (NORM) ABG pH (7.35-7.45) ABG pCO2 (34-38) MMHG ABG pO2 (65-75) MMHG ABG HCO3 (22-26) ABG Total CO2 (23-27) MMOL/L ABG O2 Saturation (90-100) % ABG Base Excess (-2-2) MMOL/L Endy Test FiO2 Sodium (135-145) meq/L Potassium (3.8-5.2) meq/L Chloride (98-112) meq/L Carbon Dioxide (23-33) meq/L Anion Gap (5-20) BUN (7-22) mg/dL Creatinine (0.70-1.50) mg/dL Estimated GFR (>60 ml/min/1.73m(2)) BUN/Creatinine Ratio (6-20) Glucose (78-110) mg/dL Calculated Osmolality (267-292) mOsm/kg Calcium (8.7-10.7) mg/dL Magnesium (1.6-2.4) mg/dL Total Bilirubin (0.3-1.2) mg/dL AST (21-57) IU/L ALT (21-72) IU/L Alkaline Phosphatase (38-126) IU/L Total Protein (6.1-8.0) g/dL Albumin (3.5-4.8) g/dL Globulin (2.50-4.10) g/dL Albumin/Globulin Ratio (1.3-2.0) mg/g TSH (0.2700-4.2000) uIU/mL Free T4 (0.93-1.71) ng/dL Ur 24 Hour Volume 2400 2400 2400 ML Ur Total Protein 24 Hr 71 mg/dL U Tot Protein 24h, Calc 1704 H (42-225) mg/DAY 09/23/17 09/23/17 09/23/17 Range/Units 05:00 05:00 05:00 WBC 6.75 (4.8-10.8) 10^3/uL RBC 4.27 L (4.70-6.10) 10^6/uL Hgb 15.3 (14.0-18.0) g/dL Hct 43.3 (42.0-52.0) % MCV 101.4 H (80-90) FL MCH 35.8 H (27-31) PG MCHC 35.3 (33-37) g/dL RDW Std Deviation 47.3 (39-50) fL RDW Coeff of Whitney 12.9 (11.5-14.5) % Plt Count 73 L (140-350) 10*3/uL MPV 10.1 (7.4-12.2) FL Immature Gran % (Auto) 0.4 (0-5) % Neut % (Auto) 71.0 (50-80) % Lymph % (Auto) 14.4 (10-50) % Morris % (Auto) 11.7 (5-15) % Eos % (Auto) 2.1 (0-8) % Baso % (Auto) 0.4 (0-1) % Immature Gran # (Auto) 0.03 10*3/UL Neut # (Auto) 4.79 10*3/UL Lymph # (Auto) 0.97 10*3/uL Morris # (Auto) 0.79 (0.3-0.8) 10*3/UL Eos # (Auto) 0.14 10*3/UL Baso # (Auto) 0.03 10*3/UL WBC Morphology Comment Normal morphology (NORM) Plt Morphology Comment Normal morphology (NORM) RBC Morph Comment Normal morphology (NORM) ABG pH (7.35-7.45) ABG pCO2 (34-38) MMHG ABG pO2 (65-75) MMHG ABG HCO3 (22-26) ABG Total CO2 (23-27) MMOL/L ABG O2 Saturation (90-100) % ABG Base Excess (-2-2) MMOL/L Endy Test FiO2 Sodium 134 L (135-145) meq/L Potassium 4.0 (3.8-5.2) meq/L Chloride 100 (98-112) meq/L Carbon Dioxide 22 L (23-33) meq/L Anion Gap 12 (5-20) BUN 15 (7-22) mg/dL Creatinine 0.9 (0.70-1.50) mg/dL Estimated GFR > 60 (>60 ml/min/1.73m(2)) BUN/Creatinine Ratio 16.66 (6-20) Glucose 85 (78-110) mg/dL Calculated Osmolality 277.0 (267-292) mOsm/kg Calcium 9.0 (8.7-10.7) mg/dL Magnesium 1.8 (1.6-2.4) mg/dL Total Bilirubin 1.8 H (0.3-1.2) mg/dL AST 62 H (21-57) IU/L ALT 60 (21-72) IU/L Alkaline Phosphatase 87 (38-126) IU/L Total Protein 7.3 (6.1-8.0) g/dL Albumin 4.3 (3.5-4.8) g/dL Globulin 3.1 (2.50-4.10) g/dL Albumin/Globulin Ratio 1.30 (1.3-2.0) mg/g TSH 4.71 H (0.2700-4.2000) uIU/mL Free T4 1.19 (0.93-1.71) ng/dL Ur 24 Hour Volume ML Ur Total Protein 24 Hr mg/dL U Tot Protein 24h, Calc (42-225) mg/DAY 09/23/17 Range/Units 10:34 WBC (4.8-10.8) 10^3/uL RBC (4.70-6.10) 10^6/uL Hgb (14.0-18.0) g/dL Hct (42.0-52.0) % MCV (80-90) FL MCH (27-31) PG MCHC (33-37) g/dL RDW Std Deviation (39-50) fL RDW Coeff of Whitney (11.5-14.5) % Plt Count (140-350) 10*3/uL MPV (7.4-12.2) FL Immature Gran % (Auto) (0-5) % Neut % (Auto) (50-80) % Lymph % (Auto) (10-50) % Morris % (Auto) (5-15) % Eos % (Auto) (0-8) % Baso % (Auto) (0-1) % Immature Gran # (Auto) 10*3/UL Neut # (Auto) 10*3/UL Lymph # (Auto) 10*3/uL Morris # (Auto) (0.3-0.8) 10*3/UL Eos # (Auto) 10*3/UL Baso # (Auto) 10*3/UL WBC Morphology Comment (NORM) Plt Morphology Comment (NORM) RBC Morph Comment (NORM) ABG pH 7.31 L (7.35-7.45) ABG pCO2 51 H (34-38) MMHG ABG pO2 91 H (65-75) MMHG ABG HCO3 26 (22-26) ABG Total CO2 27 (23-27) MMOL/L ABG O2 Saturation 96 (90-100) % ABG Base Excess -1 (-2-2) MMOL/L Endy Test Yes FiO2 40% vent Sodium (135-145) meq/L Potassium (3.8-5.2) meq/L Chloride (98-112) meq/L Carbon Dioxide (23-33) meq/L Anion Gap (5-20) BUN (7-22) mg/dL Creatinine (0.70-1.50) mg/dL Estimated GFR (>60 ml/min/1.73m(2)) BUN/Creatinine Ratio (6-20) Glucose (78-110) mg/dL Calculated Osmolality (267-292) mOsm/kg Calcium (8.7-10.7) mg/dL Magnesium (1.6-2.4) mg/dL Total Bilirubin (0.3-1.2) mg/dL AST (21-57) IU/L ALT (21-72) IU/L Alkaline Phosphatase (38-126) IU/L Total Protein (6.1-8.0) g/dL Albumin (3.5-4.8) g/dL Globulin (2.50-4.10) g/dL Albumin/Globulin Ratio (1.3-2.0) mg/g TSH (0.2700-4.2000) uIU/mL Free T4 (0.93-1.71) ng/dL Ur 24 Hour Volume ML Ur Total Protein 24 Hr mg/dL U Tot Protein 24h, Calc (42-225) mg/DAY Procedures: [address] [facility] [place] [address] PH: [phone]: [phone] FAX: [phone] ~DIAGNOSTIC IMAGING REPORT~ Patient: RAHEEM MCKAY : 1955 Sex: M Age: 61 Exam Name: US Abdomen Complete Exam Date: 09/21/17 Report # : [id number] CPT Code: 92112 EMR/MR #: [id number] Ordering: HEATHER LARRY Admiting: HEATHER LARRY DO Primary: NONE,NONE Attending: HEATHER LARRY DO Signed ABDOMINAL ULTRASOUND, 09/21/2017 10:54 AM: Clinical History: Elevated LFTs. Previous Exam: None at this facility. Scans are performed through the right and left upper quadrants in multiple projections. The gallbladder is well distended and has a normal wall thickness. There are no gall stones. Common bile duct measures 4 mm. There is hepatomegaly with increased echogenicity and decreased through transmission most consistent with fatty infiltration. No nodularity of the liver capsule is identified and there is no distortion of the vascular pattern of the liver to definitely indicate cirrhosis. Color Doppler ultrasound of the portal vein shows centripetal flow. The head and neck of the pancreas are visualized and those portions are normal. Both kidneys and the spleen are normal. The IVC and aorta are also normal. READIN. Hepatomegaly with increased echogenicity without nodularity of the liver capsule or distortion of the vascular structures of the liver. This finding is most consistent with diffuse fatty infiltration. Cirrhosis cannot entirely be excluded. There is normal centripetal flow in the portal veins. 2. Both kidneys, the spleen, aorta, IVC, and the limited views of the pancreas are normal. Dictated By: 09/21/17 1332 MALI HANSON MD. Signed By: 09/21/17 1342 MALI HANSON MD. Chest x-ray via stat read showed that the endotracheal tube was 5.9 cm of the grover and right internal jugular central venous catheter tip in the superior vena cava with small left lower lobe lung opacity. Patient Problems - Patient Problem List (1) Respiratory failure Current Visit: Yes Status: Acute Comment: Due to sedation needed for alcohol withdrawal. Code(s): J96.90 - Respiratory failure, unspecified, unspecified whether with hypoxia or hypercapnia Qualifiers: Chronicity: acute Respiratory failure complication: unspecified whether with hypoxia or hypercapnia Qualified Code(s): J96.00 - Acute respiratory failure, unspecified whether with hypoxia or hypercapnia Category: Medical (2) Delirium tremens Current Visit: Yes Status: Acute Code(s): F10.231 - Alcohol dependence with withdrawal delirium Category: Medical (3) Alcohol withdrawal delirium Current Visit: Yes Status: Acute Code(s): F10.231 - Alcohol dependence with withdrawal delirium Category: Medical (4) Alcohol abuse Current Visit: Yes Status: Acute Code(s): F10.10 - Alcohol abuse, uncomplicated Category: Medical (5) Hypertension Current Visit: Yes Status: Acute Code(s): I10 - Essential (primary) hypertension Qualifiers: Hypertension type: essential hypertension Qualified Code(s): I10 - Essential (primary) hypertension Category: Medical (6) Hepatomegaly Current Visit: Yes Status: Acute Code(s): R16.0 - Hepatomegaly, not elsewhere classified Category: Medical (7) Thrombocytopenia Current Visit: Yes Status: Acute Code(s): D69.6 - Thrombocytopenia, unspecified Category: Medical (8) Proteinuria Current Visit: Yes Status: Acute Comment: Light chain proteins are pending, serum study, and hepatitis panel. The patient should have a nephrology evaluation after this hospital stay. Code(s): R80.9 - Proteinuria, unspecified Qualifiers: Proteinuria type: unspecified Qualified Code(s): R80.9 - Proteinuria, unspecified Category: Medical
[2017-09-23] MEDS: MAGNESIUM OXIDE 400 MG TABLET PO SCH (11:20)
[2017-09-23] MEDS: ChlordiazePOXIDE Cap 25 MG CAPSULE PO SCH (11:20)
[2017-09-23] MEDS ORDERED: VECURONIUM BROMIDE 10 MG VIAL ONE (11:51)
[2017-09-26 13:50] LABS: HEP B CORE IGM ANTIBODY Negative (Negative); HEPATITIS B SURFACE AG Negative (Negative)
[2017-09-26 13:56] LABS: HEPATITIS A IGM Negative (Negative)
[2017-09-26 18:11] LABS: KAPPA FREE LIGHT CHAINS 1.46 mg/dL; LAMBDA FREE LIGHT CHAINS 1.66 mg/dL
[2017-09-26 18:12] LABS: KAPPA/LAMBDA FLC RATIO 0.8795
[2017-09-27 11:04] LABS: A/G RATIO 0.91; ALB PEP SER 3.2 g/dL (3.4-4.7); ALP1 GLOB 0.3 g/dL (0.1-0.3); ALP2 GLOB 1.3 g/dL (0.6-1.0); GAMMA GLOBS 0.8 g/dL (0.6-1.6)
== END 2017-09-23 12:15 | disposition short-term general hospital (02) | DRG 897 ==
LOC: ICU 18:41 → MED/SURG 09-22 17:25
PROVIDERS: ADMIT Family Medicine; ATTEND Family Medicine